=== PATIENT | female | born 1990 | race American Indian/Alaskan Native ===

== ENCOUNTER 2017-01-15 12:34 | Outpatient (CLI) | payer SELFPAY ==
[2017-01-15] MEDS ORDERED: LACTATED RINGERS 500 ML IV ONE (12:57)
[2017-01-15 13:14] VITALS: BP 108/49
[2017-01-15 14:03] LABS: Urine Drugs of Abuse Note Disclamer
[2017-01-15 14:12] LABS: Bacteria,Urine 1+ /HPF (Negative); Bilirubin,Urine NEG (Negative); Blood,Urine NEG (Negative); Ketones,Urine TR mg/dL (Negative); Leukocyte Esterase,Urine NEG (Negative); Mucus,Urine FEW /HPF; Nitrite,Urine POS (Negative); RBC,Urine < 1.0 /HPF (0.0-6.0); Urobilinogen,Urine < 2.0 mg/dL (<2.0)
[2017-01-15] MEDS ORDERED: MACROBID PO ONE (15:06)
== END 2017-01-15 15:00 | disposition home or self-care (01) ==
LOC: TRG 12:34
PROVIDERS: ATTEND Obstetrics & Gynecology
DX: O47.02 False labor before 37 completed weeks of gestation, second trimester (principal); Z3A.27 27 weeks gestation of pregnancy
CPT/HCPCS: 80307; 81001; 87076; 87086; 87186

== ENCOUNTER 2017-02-06 12:45 | Outpatient (CLI) | payer SELFPAY ==
[2017-02-06] MEDS ORDERED: LACTATED RINGERS 500 ML IV ONE (14:05)
[2017-02-06 14:58] LABS: Urine Drugs of Abuse Note Disclamer
--- NOTE | 2017-02-06 15:00 | Event Note ---
Date: 02/06/17 (pt presented today with c/o ROM) Prior to my arrival pt was assessed by the air saw operator Negative Nitrazine, dry perineum. fFN was sent. In review pt had been seen in Triage earlier this month, 01-15-17. She had a UTI + E.Coli UDS + cocaine and marijuana. Today a speculum exam was done, negative pooling, negative ferning. Cervix closed long OOP. No ctx recorded. NST reactive. UDS and UA pending. fFN was negative. UDS positive for amphetamines, cocaine, and marijuana. UA negative. Pt discharged home with list of local providers. Stressed kick count and hydration.
[2017-02-06 15:12] VITALS: BP 122/46
[2017-02-06 15:12] LABS: Bacteria,Urine 1+ /HPF (Negative); Bilirubin,Urine NEG (Negative); Blood,Urine NEG (Negative); Ketones,Urine TR mg/dL (Negative); Leukocyte Esterase,Urine NEG (Negative); Mucus,Urine FEW /HPF; Nitrite,Urine NEG (Negative); Protein,Urine <15 mg/dL mg/dL (Negative); Urobilinogen,Urine < 2.0 mg/dL (<2.0); WBC,Urine < 1.0 /HPF (0.0-6.0)
== END 2017-02-06 15:44 | disposition home or self-care (01) ==
LOC: TRG 12:45
PROVIDERS: ATTEND Obstetrics & Gynecology
DX: O47.03 False labor before 37 completed weeks of gestation, third trimester (principal); Z3A.30 30 weeks gestation of pregnancy
CPT/HCPCS: 36415; 59025; 80307; 81001; 82731; 87086; 87591; 96360

== ENCOUNTER 2017-02-16 13:29 | Outpatient (CLI) | payer SELFPAY ==
[2017-02-16] MEDS ORDERED: LACTATED RINGERS 500 ML IV ONE (15:00)
[2017-02-16 15:12] LABS: Urine Drugs of Abuse Note Disclamer
[2017-02-16 15:41] LABS: Bacteria,Urine 1+ /HPF (Negative); Bilirubin,Urine NEG (Negative); Blood,Urine NEG (Negative); Ketones,Urine NEG (Negative); Leukocyte Esterase,Urine MOD (Negative); Mucus,Urine 1+ /HPF; Nitrite,Urine NEG (Negative); Protein,Urine <15 mg/dL mg/dL (Negative); Urobilinogen,Urine < 2.0 mg/dL (<2.0)
[2017-02-16] MEDS ORDERED: TYLENOL PO ONE (16:00)
[2017-02-16 17:06] VITALS: BP 104/58
--- NOTE | 2017-02-16 17:15 | Event Note ---
Date: 02/16/17 ([place] no evidence of abruption FHR Category 1 Pt denies any further discomfort after Tylenol. Pt made aware of UDS result Pt admits to smoking "weed" Pt has not gotten her "medical" straightened out therefore has not gotten any PNC Will continue monitoring. D/C @ 1800 if continues stable. All questions addressed.
--- NOTE | 2017-02-17 08:02 | Ultrasound Report ---
ULTRASOUND OB LIMITED History: well being, evaluate for abruption Technique: Transabdominal ultrasound with Doppler interrogation. Gestation: Single Position: Cephalic Placenta: Fundal Placental Grade: 1 Heart Rate: 140 BPM Comment: There are multiple vascular structures at the myometrial placental interface but no evidence for abruption.
== END 2017-02-16 17:50 | disposition home or self-care (01) ==
LOC: TRG 13:29
PROVIDERS: ATTEND Obstetrics & Gynecology
DX: O99.333 Smoking (tobacco) complicating pregnancy, third trimester (principal); O99.323 Drug use complicating pregnancy, third trimester; O47.03 False labor before 37 completed weeks of gestation, third trimester; Z3A.32 32 weeks gestation of pregnancy
CPT/HCPCS: 59025; 76815; 80307; 81001; 86850; 86900; 86901; 96360; J7120

== ENCOUNTER 2017-02-17 19:49 | Outpatient (CLI) | payer SELFPAY ==
[2017-02-17] MEDS ORDERED: LACTATED RINGERS 1,000 ML IV ONE (20:52)
[2017-02-17 21:19] LABS: Urine Drugs of Abuse Note Disclamer
[2017-02-17 21:29] LABS: Bacteria,Urine 1+ /HPF (Negative); Bilirubin,Urine NEG (Negative); Blood,Urine NEG (Negative); Ketones,Urine 80 mg/dL (Negative); Leukocyte Esterase,Urine NEG (Negative); Mucus,Urine FEW /HPF; Nitrite,Urine NEG (Negative)
[2017-02-17] MEDS ORDERED: TYLENOL PO ONE (22:38)
[2017-02-17] MEDS ORDERED: LACTATED RINGERS 500 ML IV ONE (22:40)
== END 2017-02-17 19:50 | disposition home or self-care (01) ==
LOC: TRG 19:49
PROVIDERS: ATTEND Obstetrics & Gynecology
DX: O99.333 Smoking (tobacco) complicating pregnancy, third trimester (principal); O62.9 Abnormality of forces of labor, unspecified; Z3A.32 32 weeks gestation of pregnancy
CPT/HCPCS: 80307; 81001; J7120

== ENCOUNTER 2017-03-20 19:17 | Outpatient (CLI) | payer OTHER ==
[2017-03-20 19:31] VITALS: BP 124/64
== END 2017-03-20 20:30 | disposition home or self-care (01) ==
LOC: TRG 19:17
PROVIDERS: ATTEND Obstetrics & Gynecology
DX: O99.333 Smoking (tobacco) complicating pregnancy, third trimester (principal); O62.9 Abnormality of forces of labor, unspecified; O46.93 Antepartum hemorrhage, unspecified, third trimester; Z3A.36 36 weeks gestation of pregnancy

== ENCOUNTER 2017-04-09 02:01 | Outpatient (CLI) | payer OTHER ==
[2017-04-09 02:29] VITALS: BP 114/69
== END 2017-04-09 05:12 | disposition home or self-care (01) ==
LOC: TRG 02:01
PROVIDERS: ATTEND Obstetrics & Gynecology
DX: O62.9 Abnormality of forces of labor, unspecified (principal); O42.92 Full-term premature rupture of membranes, unspecified as to length of time between rupture and onset of labor; O99.333 Smoking (tobacco) complicating pregnancy, third trimester; Z3A.29 29 weeks gestation of pregnancy
CPT/HCPCS: 59025

== ENCOUNTER 2017-04-11 12:31 | Outpatient (CLI) | payer OTHER ==
[2017-04-11 12:53] VITALS: BP 121/69
--- NOTE | 2017-04-12 08:19 | Ultrasound Report ---
BIOPHYSICAL PROFILE: INDICATION: well being. COMPARISON: None similar. TECHNIQUE: Transabdominal ultrasound with Doppler interrogation. 2 - breathing movements 2 - movements 2 - posture and tone 2 - Qualitative amniotic fluid volume 8 - TOTAL SCORE OF POSSIBLE 8 Heart Rate (bpm) 123 CONCLUSION: Findings, as above.
--- NOTE | 2017-04-12 08:21 | Ultrasound Report ---
OB LIMITED INDICATION: SALLY. COMPARISON: 02/16/2017 TECHNIQUE: Transabdominal grayscale ultrasound with Doppler interrogation. Gestation: Mon Position: Cephalic Amniotic Fluid: Increased (> 24 cm) SALLY = 25.9 cm Heart Rate: 127 BPM CONCLUSION: Findings, as above.
== END 2017-04-11 14:20 | disposition home or self-care (01) ==
LOC: TRG 12:31
PROVIDERS: ATTEND Obstetrics & Gynecology
DX: O99.333 Smoking (tobacco) complicating pregnancy, third trimester (principal); Z3A.39 39 weeks gestation of pregnancy
CPT/HCPCS: 76815; 76819